=== PATIENT | male | born 1980 | race Two or more races ===

== ENCOUNTER 2025-04-06 07:56 | Emergency (ER) | payer BC ==
[~2025-04-06] VITALS: Ht 175.3 cm; Wt 90.0 kg
[2025-04-06 07:58] VITALS: O2SAT 97
[2025-04-06 08:45] LABS: BASOPHILS % 0.6 % (0.0-2.0); EOSINOPHILS % 3.7 % (0.0-5.0); HEMATOCRIT. 48.8 % (42.0-52.0); HEMOGLOBIN. 16.5 g/dL (14.0-18.0); LYMPHOCYTES % 14.4 % (20.0-50.0); MEAN PLATELET VOLUME 9.0 fl (7.4-10.4); MONOCYTES % 5.4 % (2.0-8.0); NEUTROPHILS % 75.9 % (40.0-76.0); PLATELET 217 x1000/uL (130-400); RED BLOOD CELL COUNT 5.46 mill/uL (4.7-6.1); RED CELL DISTRIBUTION WIDTH 13.7 % (11.6-14.6)
[2025-04-06] MEDS: LEVETIRACETAM 1000MG PREMIX 100 ML IV ONE (08:49)
[2025-04-06 09:01] LABS: CREATININE 1.3 mg/dL (0.6-1.3); UREA NITROGEN BLOOD 8 mg/dL (9-23)
[2025-04-06 09:03] LABS: ASPARTATE AMINOTRANSFERASE 43 IU/L (<34); BILIRUBIN DIRECT 0.2 mg/dL (<=3.0)
[2025-04-06 09:04] LABS: BILIRUBIN TOTAL 0.4 mg/dL (0.1-1.0); PROTEIN TOTAL 6.5 g/dL (6.0-8.3)
[2025-04-06 10:00] VITALS: BP 112/64; PULSE 78; RESP 19; TEMP 36.8; O2SAT 100
== END 2025-04-06 10:31 | disposition home or self-care (01) ==
LOC: ER 07:56
DX: G40.909 Epilepsy, unspecified, not intractable, without status epilepticus (principal)
CPT/HCPCS: 80076; 80048; 85025; 36415; 99284; J1953; Z7610; A4606